=== PATIENT | male | born 1980 | race Caucasian/White ===

== ENCOUNTER 2018-05-19 10:47 | Emergency (ER) | payer OTHER ==
[2018-05-19] MEDS ORDERED: OXYCODONE/APAP 5/325 TAB PO ONE ×2 (11:09→11:49)
[2018-05-19] MEDS ORDERED: CYCLOBENZAPRINE 10 MG TAB PO ONE (11:09)
--- NOTE | 2018-05-19 11:09 | EDPHY ---
H & P Stated Complaint: mechanical fall-down ft off ladder-hit L butt L wrist-then down 10 steps Time Seen by Provider: 05/19/18 11:04 HPI/ROS: HPI: This is a 37-year-old male who presents with Chief Complaint: mechanical fall-down ft off ladder-hit L butt L wrist-then down 10 steps Location: Left wrist, left buttock Quality: Injury Duration: Prior to arrival Signs and Symptoms: No bleeding, no radiation, no numbness, no weakness, no tingling, no incontinence, + decreased range of motion, no swelling, + pain, no fever Timing: Acute Severity: Moderate Context: Patient is right-hand dominant, was standing on a ladder when 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 He used his right arm to grab onto the railing and felt a pulling sensation in his left anterior wrist with immediate, constant , severe pain. He then reports he fell on his left butt cheek. He believes that his 15 lb tool belt help of for his waist and lower back. Denies LOC/head injury/neck pain/dizziness/nausea/vomiting/amnesia. He remembers the entire injury and fall. Went to [facility] urgent care who had x-rays performed and left wrist splinted and then sent to the emergency room for further evaluation. Does not take any blood thinners. Modifying Factors: Splint Comment: ROS: see HPI Constitutional: No fever, no chills, no weight loss Eyes: No blurred vision Respiratory: No shortness of breath, no cough Cardiovascular: No chest pain Gastrointestinal: No nausea, no vomiting no diarrhea Genitourinary: No dysuria Extremities: No myalgias Neurologic: No weakness, no numbness Skin: No rashes Hematologic: No bruising, no bleeding MEDICAL/SURGICAL/SOCIAL HISTORY: Medical history: Hemochromatosis Surgical history: Denies Social history: , employed, nonsmoker CONSTITUTIONAL: Extremely polite well-appearing middle-aged white male, awake and alert, no obvious distress HEENT: Atraumatic and normocephalic, PERRL, EOMI. no globe entrapment, no raccoon eyes. no Quintero signs. Tympanic membranes clear. No tympanic membrane rupture. Nares patent; no septal hematoma. Oropharynx clear, no exudate and moist pink mucosa. No malocclusion. no dental trauma. Airway patent. No lymphadenopathy. NECK: supple, no midline tenderness, flexion 45 degrees, extension 45 degrees, right and left lateral flexion 45 degrees. No meningismus. Cardiovascular: Normal S1/S2, regular rate, regular rhythm, without murmur rub or gallop. PULMONARY/CHEST: Symmetrical and nontender. no crepitus. Clear to auscultation bilaterally. Good air movement. No accessory muscle usage. ABDOMEN: Soft, nondistended, nontender, no ecchymosis, no rebound, no guarding , no peritoneal signs, no masses or organomegaly. No CVAT. PELVIC: no pain with rocking; bilateral hips flexion 125 degrees, extension 30 degrees, with no pain internal rotation and no pain external rotation. BACK: No midline tenderness, no paraspinous spasm, deep tendon reflexes 2/2, no pain with straight leg raise EXTREMITIES: 2/2 pulses, left WRIST: Anterior deformity with ulnar deviation; mild tenderness over ulnar styloid, mild tenderness over radial styloid, able to wiggle all 5 fingers with good light touch sensation. no clubbing, no cyanosis or edema. NEUROLOGICAL: no focal neuro deficits. GCS 15. SKIN: Warm and dry, no erythema. no rash. Good capillary refill. Source: Patient Exam Limitations: No limitations - Medical/Surgical History Hx Asthma: No Hx Chronic Respiratory Disease: No Hx Diabetes: No Hx Cardiac Disease: No Hx Renal Disease: No Hx Cirrhosis: No Hx Alcoholism: No Hx HIV/AIDS: No Hx Splenectomy or Spleen Trauma: No Other PMH: hemchromatosis - Social History Smoking Status: Never smoked Constitutional: Initial Vital Signs Temperature (C) 37.0 C 05/19/18 10:53 Heart Rate 85 05/19/18 10:53 Respiratory Rate 16 05/19/18 10:53 Blood Pressure 123/93 H 05/19/18 10:53 O2 Sat (%) 99 05/19/18 10:53 O2 Delivery Mode Room Air Allergies/Adverse Reactions: No Known Allergies Allergy (Unverified 05/19/18 10:52) Home Medications: Medication Instructions Recorded oxyCODONE/APAP 5/325 [Percocet 1 - 2 tab PO Q4H PRN #10 tab 05/19/18 5/325 (*)] Medical Decision Making - Diagnostics Imaging Results: Imaging Impressions Pelvis X-Ray 05/19/18 11:10 Impression: No acute osseous findings. If pain persists and clinical suspicion warrants, consider CT. Sacrum and Coccyx X-Ray 05/19/18 11:10 Impression: No visible etiology for the patient's pain. If pain persists and clinical suspicion warrants, consider CT. Wrist X-Ray 05/19/18 12:43 Impression: Stable mild dorsal displacement and angulation of a transverse comminuted intra-articular distal radial fracture. Procedures: Procedure: Hematoma block and Splint placement. 6 mL of 1% lidocaine were placed into the left wrist using a hematoma block technique. A left sugar-tong Ortho Glass splint and sling were applied by the Emergency Room diploma pharmacy technician and myself. After application of the splint I returned and re-examined the patient. The splint was adequately immobilizing the joint and distal to the splint the patient's circulation and sensation was intact. Procedure: Reduction. The reduction of the left wrist was reduced using counter traction technique without complications. Post reduction the patient's neurovascular exam is normal. Post reduction x-ray demonstrates reduction of the joint to the anatomic position. The procedure was performed by myself. ED Course/Re-evaluation: Vital signs reviewed and stable upon arrival. Given Percocet x2 and Flexeril. Sacral x-ray, pelvic x-ray ordered. Patient already had wrist x-rays performed and will be uploaded into the system. Sacral pelvic x-rays my read via PAC shows no fracture. Right wrist x-ray my read shows displaced distal radial fracture that is comminuted Hematoma block performed, Radial fracture reduced and Placed in sugar-tong splint with orthopedic follow-up in 3-5 days No signs of neurovascular compromise/tenting of skin/compartment syndrome/ extremities and joints examined above and below area of concern and are neurovascularly intact. This patient was seen under the supervision of my secondary supervising physician. I evaluated care for this patient independently. Discussed this patient with Dr. Braun. Differential Diagnosis: Differential diagnosis includes but is not limited to wrist dislocation, radial fracture, ulnar fracture, nerve injury. - Data Points Medications Given: Discontinued Medications Cyclobenzaprine HCl (Flexeril) 10 mg PO EDNOW ONE Stop: 05/19/18 11:10 Last Admin: 05/19/18 11:39 Dose: 10 mg Ibuprofen (Motrin) 600 mg PO EDNOW ONE Stop: 05/19/18 11:39 Last Admin: 05/19/18 11:39 Dose: 600 mg Oxycodone/Acetaminophen (Percocet 5/325) 2 tab PO EDNOW ONE Stop: 05/19/18 11:10 Last Admin: 05/19/18 11:18 Dose: Not Given Oxycodone/Acetaminophen (Percocet 5/325) 1 tab PO EDNOW ONE Stop: 05/19/18 11:50 Last Admin: 05/19/18 11:53 Dose: 1 tab Departure - Departure Disposition: Home, Routine, Self-Care Clinical Impression: Closed left radial fracture Qualifiers: Encounter type: initial encounter Radius location: neck Fracture alignment: displaced Qualified Code(s): S52.132A - Displaced fracture of neck of left radius, initial encounter for closed fracture Condition: Good Instructions: Wrist Fracture in Adults (ED), Splint Care (ED), ORIF of a Wrist Fracture (DC) Additional Instructions: Keep the splint dry and in place until seen by Orthopedics. Take Tylenol 650 mg every 4 hours and/or Ibuprofen 600 mg every 8 hours with food as needed for pain. Use Percocet every 6 hours as needed for severe/break through pain. Do not use Tylenol and Percocet concomitantly. Apply ice for 30 minutes at a time; 2-3 times per day for the next 1-2 days. Follow up with Orthopedics in 3-7 days at which time they will evaluate and recommend with you if conservative management versus surgery is indicated. Return to the ER immediately if you experience new or worsening pain, discoloration, numbness, tingling, or any other symptoms that concern you. Referrals: Ankur Kearns DO [Primary Care Provider] - As per Instructions Dante Christine MD [Medical Doctor] - Prescriptions: oxyCODONE/APAP 5/325 [Percocet 5/325 (*)] 1 - 2 tab PO Q4H PRN #10 tab PRN Reason: Pain, Severe
[2018-05-19] MEDS ORDERED: IBUPROFEN 600 MG TAB PO ONE (11:38)
[2018-05-19 13:19] VITALS: BP 134/89
== END 2018-05-19 13:20 | disposition home or self-care (01) ==
PROC: 2W3DX1Z Immobilization of Left Lower Arm using Splint (ICD-10-PCS; principal; 2018-05-19)
DX: S52.132A Displaced fracture of neck of left radius, initial encounter for closed fracture (principal); W11.XXXA Fall on and from ladder, initial encounter; Y99.0 Civilian activity done for income or pay
CPT/HCPCS: A4565